=== PATIENT | female | born 1955 | race Caucasian/White ===

== ENCOUNTER → 2023-10-14 | Outpatient (CLI) | payer MEDICARE, OTHER ==
[2023-10-14 11:33] LABS: Partial Thromboplastin Time 23.8 sec (22.0-30.0)
[2023-10-14 15:54] LABS: HCT 40.7 % (37.2-46.3); HGB 13.2 g/dL (12.0-15.0); MCH 27.6 pg (27.0-32.0); MCHC 32.4 g/dL (32.0-37.0); Mean Platelet Volume 10.2 FL (9.5-12.2); NRBC Per 100 WBC 0 X 10*3/uL (0.00-0.01); Platelet Count 237 X 10*3/uL (140-440); RBC 4.79 X 10*6/uL (4.10-5.20); RDW 16.3 % (11.5-14.5); WBC 10.07 X 10*3/uL (4.50-10.00)
[2023-10-14 16:01] LABS: ALT 18 U/L (8-44); AST 12 U/L (13-35); Albumin 4.3 g/dL (3.8-4.9); Albumin/Globulin Ratio 1.72 Ratio (1.60-3.17); Alkaline Phosphatase 78 U/L (41-126); Blood Urea Nitrogen 33.1 mg/dL (9.0-27.0); Calcium 9.9 mg/dL (8.7-10.3); Carbon Dioxide 23.4 mmol/L (21.6-31.8); Chloride 102 mmol/L (96-109); Globulin 2.5 g/dL (1.6-3.3); Glucose 91 mg/dL (70-110); Potassium 4.6 mmol/L (3.5-5.5); Sodium 138 mmol/L (135-145); Total Bilirubin 0.3 mg/dL (0.3-1.2); Total Protein 6.8 g/dL (6.2-8.2)
[2023-10-14 23:24] LABS: INR 0.9 (<1.2); Prothrombin Time 10.1 sec (10.0-12.5)
== END | disposition home or self-care (01) ==
LOC: LABPAT 10:20
PROVIDERS: ATTEND Orthopaedic Surgery
DX: Z01.812 Encounter for preprocedural laboratory examination (principal); M17.12 Unilateral primary osteoarthritis, left knee; Z22.322 Carrier or suspected carrier of Methicillin resistant Staphylococcus aureus
CPT/HCPCS: 36415; 80053; 85027; 85610; 85730; 87070

== ENCOUNTER 2023-10-25 07:09 | Day surgery (SDC) | payer MEDICARE, OTHER ==
[2023-10-19 12:47] VITALS: BMI 43.5
[2023-10-25] MEDS: LACTATED RINGERS 1,000 ML IV SCH (07:27)
[2023-10-25 07:39] LABS: Glucose,Whole Blood 121 mg/dL (70-110)
[2023-10-25] MEDS: GABAPENTIN 300 MG CAP PO PRN (07:49)
[2023-10-25] MEDS: ONDANSETRON 4 MG/2 ML VIAL IVP ONE (07:49)
[2023-10-25] MEDS: ACETAMINOPHEN TAB 500 MG TAB PO PRN (07:49)
[2023-10-25] MEDS: MELOXICAM 7.5 MG TAB PO PRN (07:49)
[2023-10-25] MEDS: DEXAMETHASONE SOD PHOSPHATE 4 MG/ML 1 ML VIAL IV ONE (07:49)
[2023-10-25] MEDS: fentaNYL (PF) 50 MCG/ML 2 ML AMP IVP ONE ×2 (07:54→07:59)
[2023-10-25] MEDS: MIDAZOLAM 2 MG/2 ML VIAL IVP ONE ×2 (07:54→07:58)
[2023-10-25] MEDS ORDERED: bisacodyL 10 MG SUPP RECTAL PRN (08:04)
[2023-10-25] MEDS ORDERED: NALOXONE 0.4 MG/ML 1 ML VIAL IV PRN (08:04)
[2023-10-25] MEDS ORDERED: HYDROmorphone 0.5 MG/0.5 ML SYRINGE IVP PRN ×2 (08:04)
[2023-10-25] MEDS ORDERED: MAGNESIUM HYDROXIDE 2,400 MG/30 ML CUP PO PRN (08:04)
[2023-10-25] MEDS ORDERED: NA PHOS,M-B/NA PHOS,DI-BA 133 ML ENEMA RECTAL PRN (08:04)
[2023-10-25] MEDS ORDERED: fentaNYL (PF) 50 MCG/ML 2 ML AMP ONE (08:15)
[2023-10-25] MEDS ORDERED: PROPOFOL 10 MG/ML 20 ML VIAL IV ONE (08:15)
[2023-10-25] MEDS ORDERED: DEXAMETHASONE SOD PHOSPHATE 4 MG/ML 1 ML VIAL ONE (08:15)
[2023-10-25] MEDS ORDERED: SODIUM CHLORIDE 0.9% (PF) 10 ML VIAL ONE (08:15)
[2023-10-25] MEDS ORDERED: KETAMINE HCL IN 0.9 % NACL 50 MG/5 ML SYRINGE ONE (08:15)
[2023-10-25] MEDS ORDERED: MIDAZOLAM 2 MG/2 ML VIAL ONE (08:15)
[2023-10-25] MEDS ORDERED: ROPIVACAINE 5 MG/ML 30 ML VIAL ONE (08:15)
[2023-10-25] MEDS ORDERED: diphenhydrAMINE 50 MG/ML 1 ML VIAL ONE (08:15)
[2023-10-25] MEDS ORDERED: TRANEXAMIC 1,000 MG/100ML-NACL PREMIX BAG ONE (08:15)
--- NOTE | 2023-10-25 08:16 | P.ANPRN ---
Procedure Note - Anesthesia - Nerve Block Performed Left Adductor Canal Infusion Time Out Performed: Yes Date of Procedure: 10/25/23 Procedure Start Time: 07:54 Procedure Stop Time: 08:01 Location of Patient: PreOp Indication: Acute Post-Operative Pain, Requested by Surgeon Sedation Type: Sedate with meaningful contact maintained Preparation: Sterile Prep, Sterile Dressing Position: Supine Catheter: Indwelling Needle Types: Pajunk Needle Gauge: 18 Ultrasound used to visualize needle placement: Yes Ultrasound used to observe medication spread: Yes Injectate: 0.5% Ropivacaine (see comment for volume) (Ropivacaine 0.5% 15 ml + 15 ml NS) Blood Aspirated: No Pain Paresthesia on Injection Noted: No Resistance on Injection: Normal Image Stored and Saved: Yes Events: Uneventful and Well Tolerated
[2023-10-25] MEDS: ceFAZolin 1,000 MG in SODIUM CHLORIDE 0.9% 1,000 ML IRRIGATION ONE (08:17)
[2023-10-25] MEDS: TRANEXAMIC 1,000 MG/100ML-NACL 1,000 MG in SALINE 1 100ML.BAG IVPB PRN ×2 (08:17→09:15)
--- NOTE | 2023-10-25 08:17 | P.ANPRN ---
Procedure Note - Anesthesia - Nerve Block Performed Left iPack Single Time Out Performed: Yes Date of Procedure: 10/25/23 Procedure Start Time: :02 Procedure Stop Time: 08:06 Location of Patient: PreOp Indication: Acute Post-Operative Pain, Requested by Surgeon Sedation Type: Sedate with meaningful contact maintained Preparation: Sterile Prep Position: Right Lateral Needle Types: Pajunk Needle Gauge: 21 Ultrasound used to visualize needle placement: Yes Ultrasound used to observe medication spread: Yes Injectate: 0.5% Ropivacaine (see comment for volume) (Ropivacaine 0.5% 15 ml + 15 ml NS + 4 mg Dexamethasone) Blood Aspirated: No Pain Paresthesia on Injection Noted: No Resistance on Injection: Normal Image Stored and Saved: Yes Events: Uneventful and Well Tolerated
[2023-10-25] MEDS: LACTATED RINGERS 1,000 ML IV ONE (09:15)
--- NOTE | 2023-10-25 09:25 | P.OP ---
Date of Procedure: 10/25/23 Preoperative Diagnosis: Severe osteoarthritis left knee Postoperative Diagnosis: Severe osteoarthritis left knee Procedure(s) Performed: Left total knee arthroplasty Implants: [employer]hew Journey II CR Oxinium cruciate retaining femoral component size 5, left [employer] Journey nonporous tibial baseplate size 4, left [employer] Journey II, CR articular insert, size 9 mm, Size 3-4, left [employer] Journey Lucretia II resurfacing patellar component, oval, 32 mm All components were cemented using Palacos R bone cement The articulation is Oxinium on polyethylene Anesthesia: spinal Surgeon: Franki Hernandez Plate Filler #1: Harriet Ruiz Estimated Blood Loss (ml): 30 Pathology: none sent Condition: stable Disposition: PACU Indications for Procedure: The patient's knee is end-stage, and conservative management has failed. The operation of knee replacement has been discussed at length in the office, as well as potential risks and complications. These are inclusive of, but not limited to: Infection, bleeding, scarring, discomfort, stiffness, blood vessel and nerve damage, need for further surgery, failure to relieve symptoms, persistence, recurrence, or worsening of problems, loosening, dislocation, wear, blood clot, pulmonary embolism, , gait dysfunction, stiffness, and other risks as discussed in the office. Patient elects to proceed and the consent form has been signed. Operative Findings: The operative findings are consistent with severe osteoarthritis the left knee Description of Procedure: The patient was seen in the preoperative area, the consent was reviewed and the operative site was marked with a skin marker. The patient verified the procedure and the operative site. An adductor canal pain catheter and an iPACK block were placed by anesthesia in the preoperative area. The patient was then brought to the operating room and positioned on the operating room table in the supine position. Preoperative antibiotics and a gram of tranexamic acid were given intravenously. A spinal anesthetic was administered by the anesthesia department. Care was taken to make sure that all pressure points were adequatel y padded. A tourniquet was placed on the upper thigh and the lower extremity was prepped with ChloraPrep and draped in usual sterile fashion. A universal time-out was then performed which confirmed the patient's name, surgical site, ALLERGIES, and consent. The lower extremity was then exsanguinated and tourniquet was inflated to 250 mmHg. A standard anterior midline approach to the knee was performed. The skin and subcutaneous tissue were sharply dissected down to the patellar tendon. A medial parapatellar arthrotomy was then performed. The knee was then extended, the patellar was everted, and the knee was flexed. The infra-patellar fat pad was removed in order to enhance exposure. The anterior horns of both menisci were excised, and a release was performed to the posterior medial aspect of the knee. On gross visual inspection, there was complete loss of articular cartilage in the medial and patellofemoral joint spaces. There was also significant cartilage damage in the lateral compartment. There were multiple periarticular osteophytes globally about the knee which were then removed with a Ronguer. The femoral canal was then opened with the 9.5 mm intramedullary dril l. The 8 mm intramedullary soham was then inserted into the femoral canal with the distal femoral cutting guide set for 5 of valgus. The distal femoral cutting block was then pinned in place. The intramedullary soham was then removed, and the distal femur was then cut. The cutting block was then removed and the cut was checked for symmetry. The resected bone was then measured to confirm the appropriate distal femoral resection. Next, the sizing guide was then placed and set for 3 external rotation based off of the epicondylar axis and Oldwick's line. Pins were then placed and the drill holes, and the femur was sized with the sizing stylus. The pins were then removed, and the sizing guide was then removed. The spikes of the appropriate size femoral block was then placed into the predrilled holes, and malleted into place. Two 45 mm pins were then placed into the fixation holes on the cutting block. An ronald wing was then used to ensure there would be no notching with the anterior cut. The anterior condyles were cut without notching. The anterior chord cut was then performed, followed by the posterior cut, posterior chamfer cut, and the anterior chamfer cut. The collateral ligaments were protected during the entire process. The cutting block was then removed. Any remaining bone and osteophytes were removed from the femur with a Ronguer. Attention was then directed to the tibia. The remaining ACL was removed with a Ronguer, and the tibia was then gently subluxed forward with a large bent knee retractor. Any remaining menisci were excised. The posterior lateral corner was cauterized in order to coagulate the lateral geniculate artery. The extra medullary tibial cutting guide was then placed, set for the appropriate rotation, slope, and depth of resection. The proximal tibia cutting guide was then pinned in place. Proximal tibia was then cut and sized. A curved osteotome was then used to remove any posterior osteophytes from the distal femur. The femoral trial was placed. A narrow saw blade was then used to remove the anterior intracondylar femoral bone. The CR notch trial was then placed. The tibial trial was placed with the appropriate-sized insert. The knee was able to fully extend and flex to 130 and was stable throughout all range of motion. The knee was then extended and the patella was everted. Patella was then measured, and then using an osteotomy guide, the patella was cut at the appropriate level. The patellar component was sized. The patellar drill guide was placed and the patella was drilled. The patella trial was then placed. The knee was then taken through range of motion with the patella trial and the patella tracked normally using the no thumbs technique. The patella trial was then removed. The knee was then flexed and lug holes were drilled through the femoral trial and the femoral trial was then removed. The tibial was then re- exposed, and the tibial broach guide was then pinned in place after it was set for the appropriate rotation to allow for the most coverage without overhang. The tibia was then reamed and broached. The femoral canal was plugged with autologous bone. The cut surfaces of bone were then irrigated with pulsatile lavage. The knee was also irrigated with Irrisept solution. The components were then opened, the cement was mixed. Cement was placed on the backside of the femoral, tibial, and patellar components. Cement was then applied to the tibial surface and pressurized into the surface using finger pressurization technique. The tibial component was then applied and excess cement was removed after it was impacted securely noted to be flush with the cut surface. In similar fashion, the cement was applied to the cut femoral surface, pressurized and using finger pressurization the component was impacted in place. Excess cement was removed. The polyethylene spacer was then implanted and locked into position. Patellar component was then applied in a similar technique and the patellar clamp was used to hold patella in place while the cement hardened. The knee was held in full extension while the cement hardened. Once the cement had fully hardened, the knee was reinspected. Any other cement extrusion was removed the final range of motion testing showed range of motion from 0-130 with excellent stability, both medial and laterally and appropriate alignment of the leg. Patella tracked normally. After the cemented hardened, the tourniquet was released and hemostasis was obtained. A second gram of transexamic acid was given intravenously. The knee was again irrigated. The knee was again taken through range of motion and found to be stable throughout all range of motion of 0-130, and the patella tracked normally. The fascia was then closed with 0 Vicryl followed by #2 strata fix suture. The subcutaneous tissue was closed with 3-0 Vicryl and 3-0 strata fix. Exofin glue was used for the skin and placed with the knee in flexion. After the glue had dried, and Optafoam silver impregnated dressing was applied. A lightly compressive dressing was applied using web roll and Kam wrap. Patient was then transferred to the stretcher and taken to recovery room in stable condition. Sponge and needle counts were correct. The rehab assistant DAMIAN Singh was required due the complexity surgery and the need for a skilled surgical training specialist. She assisted in positioning, draping, retraction, and closure of the wound.
[2023-10-25] MEDS: HYDROmorphone 0.5 MG/0.5 ML SYRINGE IVP PRN ×2 (10:09→16:37)
[2023-10-25] MEDS: ROPIVACAINE 1,100 MG, SODIUM CHLORIDE 0.9% 500 ML 330 ML, EMPTY PAIN BALL 1 EACH MISCELLANE PRN (10:11)
[2023-10-25 11:14] LABS: Glucose,Whole Blood 181 mg/dL (70-110)
[2023-10-25] MEDS: HYDROcodone/APAP 7.5-325MG 1 EACH TAB PO PRN ×2 (11:41→20:21)
[2023-10-25] MEDS: SODIUM CHLORIDE 0.9% 1,000 ML IV SCH (12:53)
[2023-10-25] MEDS ORDERED: DEXTROSE 50% SYRINGE 50 ML IVP PRN ×2 (13:38)
[2023-10-25 13:50] LABS: Glucose,Whole Blood 226 mg/dL (70-110)
[2023-10-25] MEDS: INSULIN ASPART (NovoLOG) 100 UNIT/ML VIAL SQ SCH ×2 (13:57→17:23)
[2023-10-25] MEDS: INSULIN DETEMIR (LEVEMIR) 100 UNIT/ML SYR SQ SCH (14:01)
[2023-10-25] MEDS: ONDANSETRON 4 MG/2 ML VIAL IVP PRN (16:41)
--- NOTE | 2023-10-25 16:49 | P.CONS ---
History of Present Illness - Reason for Consult Consult date: 10/25/23 Medical management Requesting physician: Franki Hernandez - Chief Complaint Knee surgery - History of Present Illness This is a pleasant 68-year-old patient who follows with Dr. Krista Avilez. Chronic stable medical condition include coronary artery disease with stenting 2010, diabetes, GERD, hypertension, hyperlipidemia, fatty liver, obstructive sleep apnea uses CPAP,. Patient recently had a negative stress test. Patient is undergone left total knee arthroplasty. Pain is controlled. Has slight nausea. No chest pain or short of breath. Laying in bed. Comfortable. Review of systems: GEN.: Tired EYES: None HEENT: None NECK: None RESPIRATORY: None CARDIOVASCULAR: None GASTROINTESTINAL: None GENITOURINARY: None MUSCULOSKELETAL: Joint pains e LYMPHATICS: None HEMATOLOGICAL: None PSYCHIATRY: None NEUROLOGICAL: None Social history: . Started smoking age of 13 1/2 packs a day stopped in 2001. Does vaping rarely. Physical examination: VITAL SIGNS: Afebrile, 76, 16, 1 one 3 x 58, 94% on 2 L GENERAL: BMI 43.8, reclining bed awake comfortable. EYES: Pupils equal. Conjunctiva aniket l. HEENT: External appearance of nose and ears normal, oral cavity grossly normal. NECK: JVD not raised; masses not palpable. HEART: First and second heart sounds are normal; no edema. LUNGS: Respiratory rate normal; clear to auscultation. ABDOMEN: Soft, nontender, liver spleen not palpable, no masses palpable. PSYCH: Alert and oriented x3; mood and affect aniket l. MUSCULOSKELETAL:No Clubbing/cyanosis;muscles-grossly intact. OA. Dressing over the left knee. NEUROLOGICAL: Cranial nerves grossly intact; no facial asymmetry, power and sensation grossly intact. LYMPHATICS: No lymph nodes palpable in the axilla and neck INVESTIGATIONS, reviewed in the clinical context: October 14, 2023: White count 10 hemoglobin 13.2 platelets 237 potassium 4.6 BUN 33.1 creatinine 1 Assessment and plan: -Left total knee arthroplasty Aspirin for DVT prophylaxis. Pain controlled. -Chronic hyperuricemia Allopurinol 100 mg a day -CAD with a prior history of stent in 2010. Had a recent negative stress test. Continue aspirin. Lipitor. -Diabetes mellitus type 2 Glucotrol-hold. Resume metformin.. Follow Accu-Cheks with sliding scale insulin. Resume home dose of i Levemir and sliding scale insulin.. -Essential hypertension Currently blood pressure is relatively on the lower side. Resume Lopressor. Hold off amlodipine and Cozaar. For now. -Morbid obesity BMI 43.8 Weight loss measures Care was discussed with the patient. Questions answered. Thank Dr. Hernandez Past Medical History Past Medical History: Coronary Artery Disease (CAD), Diabetes Mellitus, GERD/Reflux, Hyperlipidemia, Hypertension, Liver Disease, Osteoarthritis (OA), Sleep Apnea/CPAP/BIPAP Additional Past Medical History / Comment(s): IDDM, "fatty liver",uses C-PAP. History of Any Multi-Drug Resistant Organisms: None Reported Past Surgical History: Heart Catheterization With Stent, Orthopedic Surgery Additional Past Surgical History / Comment(s): Bilat rotator cuff repair, repair torn bicep rt, 2 fingers rt hand trigger finger release, Rt wrist surgery with plate and screws, Parathyroidectomy. Past Anesthesia/Blood Transfusion Reactions: Previous Problems w/ Anesthesia Additional Past Anesthesia/Blood Transfusion Reaction / Comm: low oxygen level after surgery. Date of Last Stent Placement:: 10-20-2010 Past Psychological History: No Psychological Hx Reported Smoking Status: Former smoker, Vaper Past Alcohol Use History: Rare Additional Past Alcohol Use History / Comment(s): Sarted smoking age 13, 1.5ppd, quit 2001 Past Drug Use History: Marijuana Additional Drug Use History / Comment(s): Rarely vapes Marijuana "hits it 2-3 times" Edible gummies rarely use. Instructed no Marijuana use 24hors prior to procedure. - Past Family History Mother Family Medical History: Cancer Additional Family Medical History / Comment(s): skin cancer and on leg. Medications and Allergies Home Medications Medication Instructions Recorded Confirmed Type Aspirin 325 mg PO HS 10/19/23 10/25/23 History Calcium Vitamin D3 1 dose PO QAM 10/19/23 10/25/23 History Cetirizine HCl [Zyrtec] 10 mg PO DAILY 10/19/23 10/25/23 History Furosemide [Lasix] 20 mg PO QAM 10/19/23 10/25/23 History Insulin Aspart [NovoLOG] 4 - 5 units SQ AC-BRKFST 10/19/23 10/25/23 History Insulin Aspart [NovoLOG] 20 units SQ AC-SUPPER 10/19/23 10/25/23 History Insulin Glargine,Hum.rec.anlog 13 unit SQ QAM 10/19/23 10/25/23 History [Basaglar Kwikpen U-100] L.acidoph,Paracasei, B.lactis 1 each PO QAM 10/19/23 10/25/23 History [Probiotic] Losartan Potassium [Cozaar] 100 mg PO QAM 10/19/23 10/25/23 History Meloxicam [Mobic] 15 mg PO QAM PRN 10/19/23 10/25/23 History Metoprolol Tartrate [Lopressor] 50 mg PO BID 10/19/23 10/25/23 History Multivitamin [Multivitamins Adult 1 each PO DAILY 10/19/23 10/25/23 History Gummies] Pantoprazole [Protonix] 40 mg PO DAILY 10/19/23 10/25/23 History Rosuvastatin [Crestor] 10 mg PO HS 10/19/23 10/25/23 History allopurinoL [Zyloprim] 100 mg PO DAILY 10/19/23 10/25/23 History amLODIPine BESYLATE 5 mg PO QAM 10/19/23 10/25/23 History glipiZIDE [Glucotrol] 10 mg PO AC-BRKFST 10/19/23 10/25/23 History metFORMIN HCL [Glucophage] 1,000 mg PO AC-SUPPER 10/19/23 10/25/23 History traMADol HCL 50 mg PO BID PRN 10/19/23 10/25/23 History Aspirin 325 mg PO BID #60 tab 10/25/23 Rx HYDROcodone/APAP 7.5-325MG [[place] 1 - 2 tab PO Q6H PRN #32 tab 10/25/23 Rx 7.5-325] Sennosides [Senokot] 2 tab PO DAILY PRN #60 tablet 10/25/23 Rx Allergies Allergy/AdvReac Type Severity Reaction Status Date / Time hydromorphone [From Dilaudid] AdvReac Nausea & Verified 10/25/23 07:26 Vomiting nizatidine [From Axid] AdvReac Rash/Hives Verified 10/25/23 07:26 Statin AdvReac "Muscles Uncoded 10/25/23 07:26 hurt all over." Physical Exam Vitals: Vital Signs Temp Pulse Resp BP BP Pulse Ox 10/25/23 12:30 76 16 113/58 94 L 10/25/23 12:00 92 16 117/58 95 10/25/23 11:43 80 16 138/63 97 10/25/23 11:28 79 16 117/66 95 10/25/23 10:56 87 16 130/66 95 10/25/23 10:39 75 16 121/67 94 L 10/25/23 10:24 81 16 126/66 99 10/25/23 10:08 77 16 134/71 99 10/25/23 09:53 97.3 F L 80 16 143/69 99 10/25/23 08:14 86 16 141/65 98 10/25/23 08:05 89 17 160/74 97 10/25/23 07:23 96.9 F L 88 18 192/81 96 Intake and Output 10/25/23 10/25/23 10/25/23 06:59 14:59 22:59 Intake Total 1801 Output Total 280 Balance 1521 Intake: IV 1801 Output: Urine 250 Estimated Blood Loss 30 Other: Weight 108.5 kg Results Labs: Abnormal Lab Results - Last 24 Hours (Table) 10/25/23 10/25/23 10/25/23 Range/Units 07:34 11:10 13:48 POC Glucose (mg/dL) 121 H 181 H 226 H (70-110) mg/dL
[2023-10-25 17:00] LABS: Glucose,Whole Blood 286 mg/dL (70-110)
[2023-10-25] MEDS: metFORMIN 500 MG TAB PO SCH (17:22)
[2023-10-25 19:53] LABS: Glucose,Whole Blood 235 mg/dL (70-110)
[2023-10-25] MEDS: SENNOSIDES-DOCUSATE SODIUM 1 EACH TAB PO SCH (20:09)
[2023-10-25] MEDS: ASPIRIN 325 MG TAB PO SCH (20:09)
[2023-10-25] MEDS: ATORVASTATIN 20 MG TAB PO SCH (20:09)
[2023-10-26 06:01] LABS: Glucose,Whole Blood 149 mg/dL (70-110)
[2023-10-26] MEDS: PANTOPRAZOLE 40 MG TABLET PO SCH (06:19)
--- NOTE | 2023-10-26 07:00 | P.PN ---
Progress Note - Text Progress Note Date: 10/26/23 Postoperative day # 1 status post total knee arthroplasty, and adductor canal catheter placed for postoperative analgesia, currently at ropivacaine 0.2% 8 mL per hour and continuous infusion, visual analogue scale is 4/10, patient using oral pain medication for breakthrough pain. Assessment and plan= Acute postoperative pain, adductor canal catheter for pain control, pain is well controlled we'll continue the same management.
[2023-10-26] MEDS ORDERED: glipiZIDE 10 MG TAB PO SCH (07:30)
[2023-10-26] MEDS: allopurinoL 100 MG TAB PO SCH (07:50)
[2023-10-26] MEDS: MULTIVITAMINS, THERA 1 EACH TAB PO SCH (07:50)
[2023-10-26 08:11] LABS: Basophils % (A) 0 %; Eosinophils % (A) 0 %; HCT 34.4 % (34.0-46.0); HGB 11.7 gm/dL (11.4-16.0); Lymphocytes # (A) 2.4 k/uL (1.0-4.8); Lymphocytes % (A) 15 %; MCH 29.2 pg (25.0-35.0); MCHC 33.9 g/dL (31.0-37.0); MCV 86.2 fL (80.0-100.0); Mean Platelet Volume 8.1; Monocytes % (A) 6 %; Neutrophils # (A) 12.4 k/uL (1.3-7.7); Neutrophils % (A) 77 %; Platelet Count 218 k/uL (150-450); RBC 3.99 m/uL (3.80-5.40); RDW 15.8 % (11.5-15.5)
--- NOTE | 2023-10-26 09:18 | XR ---
EXAMINATION TYPE: XR knee limited LT DATE OF EXAM: 10/25/2023 10:36 AM CLINICAL INDICATION:Female, 68 years old with history of post op; [facility] COMPARISON: None. TECHNIQUE: XR knee limited LT; examined in Frontal, lateral and oblique projections. FINDINGS: Status post total knee arthroplasty changes with hardware in appropriate alignment and in tact. No evidence of fracture. IMPRESSION: Status post total knee arthroplasty changes with hardware intact and appropriate alignment. No fractu res identified.
--- NOTE | 2023-10-26 09:39 | P.DS ---
Providers Expected date of discharge: 10/26/23 Attending physician: Franki Hernandez Consults: 10/25/23 08:04 Consult Physician Routine Consulting Provider: Prakash Wong Consult Reason/Comments: medical management Do you want consulting provider notified?: Yes Primary care physician: Krista Avilez - Discharge Diagnosis(es) (1) Osteoarthritis of left knee Current Visit: Yes Status: Acute (2) Status post total left knee replacement Current Visit: Yes Status: Acute Hospital Course: This is a 68-year-old female with known history of degenerative arthritis of the left knee. The patient presented for evaluation as an outpatient. After discussion and consideration patient elects to proceed with total knee arthroplasty. The patient is seen preoperatively by Dr. Hernandez and medically cleared for surgery by their primary care physician. Patient is admitted to [facility] on 10/25/2023 for total knee arthroplasty. The procedure is performed without complication or sequelae. The patient is doing well postoperatively. Labs and vital signs are stable on day of discharge. On day of discharge patient's knee incision is healing well. There is minimal erythema. There is no drainage noted at this time. There is minimal soft tissue swelling to the knee. Patient has full foot and ankle motion without difficulty or pain. Calf is soft and nontender to palpation. Neurovascular status to the left lower extremity is intact. Patient is discharged home in good condition. Please see med rec for accurate list of home medications. Plan - Discharge Summary Discharge Rx Participant: No New Discharge Prescriptions: New Aspirin 325 mg PO BID #60 tab HYDROcodone/APAP 7.5-325MG [[place] 7.5-325] 1 - 2 tab PO Q6H PRN #32 tab PRN Reason: Pain Sennosides [Senokot] 2 tab PO DAILY PRN #60 tablet PRN Reason: Constipation Ketorolac [Toradol] 10 mg PO Q6HR #12 tab No Action traMADol HCL 50 mg PO BID PRN PRN Reason: Pain metFORMIN HCL [Glucophage] 1,000 mg PO AC-SUPPER Rosuvastatin [Crestor] 10 mg PO HS Multivitamin [Multivitamins Adult Gummies] 1 each PO DAILY L.acidoph,Paracasei, B.lactis [Probiotic] 1 each PO QAM Furosemide [Lasix] 20 mg PO QAM Calcium Vitamin D3 1 dose PO QAM glipiZIDE [Glucotrol] 10 mg PO AC-BRKFST Meloxicam [Mobic] 15 mg PO QAM PRN PRN Reason: Pain amLODIPine BESYLATE 5 mg PO QAM Pantoprazole [Protonix] 40 mg PO DAILY Metoprolol Tartrate [Lopressor] 50 mg PO BID Losartan Potassium [Cozaar] 100 mg PO QAM Insulin Aspart [NovoLOG] 20 units SQ AC-SUPPER Cetirizine HCl [Zyrtec] 10 mg PO DAILY Aspirin 325 mg PO HS allopurinoL [Zyloprim] 100 mg PO DAILY Insulin Aspart [NovoLOG] 4 - 5 units SQ AC-BRKFST Insulin Glargine,Hum.rec.anlog [Basaglar Kwikpen U-100] 13 unit SQ QAM Discharge Medication List Aspirin 325 mg PO HS 10/19/23 [History] Calcium Vitamin D3 1 dose PO QAM 10/19/23 [History] Cetirizine HCl [Zyrtec] 10 mg PO DAILY 10/19/23 [History] Furosemide [Lasix] 20 mg PO QAM 10/19/23 [History] Insulin Aspart [NovoLOG] 4 - 5 units SQ AC-BRKFST 10/19/23 [History] Insulin Aspart [NovoLOG] 20 units SQ AC-SUPPER 10/19/23 [History] Insulin Glargine,Hum.rec.anlog [Basaglar Kwikpen U-100] 13 unit SQ QAM 10/19/23 [History] L.acidoph,Paracasei, B.lactis [Probiotic] 1 each PO QAM 10/19/23 [History] Losartan Potassium [Cozaar] 100 mg PO QAM 10/19/23 [History] Meloxicam [Mobic] 15 mg PO QAM PRN 10/19/23 [History] Metoprolol Tartrate [Lopressor] 50 mg PO BID 10/19/23 [History] Multivitamin [Multivitamins Adult Gummies] 1 each PO DAILY 10/19/23 [History] Pantoprazole [Protonix] 40 mg PO DAILY 10/19/23 [History] Rosuvastatin [Crestor] 10 mg PO HS 10/19/23 [History] allopurinoL [Zyloprim] 100 mg PO DAILY 10/19/23 [History] amLODIPine BESYLATE 5 mg PO QAM 10/19/23 [History] glipiZIDE [Glucotrol] 10 mg PO AC-BRKFST 10/19/23 [History] metFORMIN HCL [Glucophage] 1,000 mg PO AC-SUPPER 10/19/23 [History] traMADol HCL 50 mg PO BID PRN 10/19/23 [History] Aspirin 325 mg PO BID #60 tab 10/25/23 [Rx] HYDROcodone/APAP 7.5-325MG [[place] 7.5-325] 1 - 2 tab PO Q6H PRN #32 tab 10/25/23 [Rx] Sennosides [Senokot] 2 tab PO DAILY PRN #60 tablet 10/25/23 [Rx] Ketorolac [Toradol] 10 mg PO Q6HR #12 tab 10/26/23 [Rx] Follow up Appointment(s)/Referral(s): Franki Hernandez DO [Doctor of Osteopathic Medicine] - 2 Weeks Activity/Diet/Wound Care/Special Instructions: Weightbearing as tolerated with a walker. CPM 5-6h daily as tolerated. Leave dressing intact. Dressing may be removed by home care nurse or by patient in 7 days. Then change dressing twice daily until follow up. May shower with initial dressing intact and after removal. If dressing become saturated, please remove. Recommend use of compression stockings daily until follow up to help prevent swelling and blood clots. May remove at night before sleeping. Please take aspirin 325mg twice daily for 30 days to prevent blood clots. Please follow up with [facility] and call with any questions or concerns, . Discharge Disposition: HOME WITH HOME HEALTH SERVICES
[2023-10-26] MEDS: KETOROLAC 15 MG/ML 1 ML VIAL IVP PRN (09:55)
[2023-10-26 10:35] VITALS: BP 178/75; PULSE 98; RESP 18; TEMP 97.4
[2023-10-26 11:45] LABS: Glucose,Whole Blood 127 mg/dL (70-110)
[2023-10-26] MEDS: LOSARTAN 50 MG TAB PO SCH (12:07)
[2023-10-26] MEDS: amLODIPine 5 MG TAB PO SCH (12:07)
--- NOTE | 2023-10-26 13:12 | P.PN ---
Subjective Progress Note Date: 10/26/23 This is a pleasant 68-year-old patient who follows with Dr. Krista Avilez. Chronic stable medical condition include coronary artery disease with stenting 2010, diabetes, GERD, hypertension, hyperlipidemia, fatty liver, obstructive sleep apnea uses CPAP,. Patient recently had a negative stress test. Patient is undergone left total knee arthroplasty. Pain is controlled. Has slight nausea. No chest pain or short of breath. Laying in bed. Comfortable. 10/25. Patient seen and examined. Patient blood pressure elevated, resume home meds. REVIEW OF SYSTEMS: CONSTITUTIONAL: No fever, no malaise,. CARDIOVASCULAR: No chest pain, no palpitations, no syncope. PULMONARY: No shortness of breath, no cough, GASTROINTESTINAL: No diarrhea, no nausea, no vomiting, no abdominal pain. NEUROLOGICAL: No headaches, no weakness, PHYSICAL EXAMINATION: GENERAL: The patient is alert and oriented x3, not in any acute distress. Well developed, well nourished. HEENT: Pupils are round and equally reacting to light. EOMI. No scleral icterus. No conjunctival pallor. Normocephalic, atraumatic. No pharyngeal erythema. No thyromegaly. CARDIOVASCULAR: S1 and S2 present. No murmurs, rubs, or gallops. PULMONARY: Chest is clear to auscultation, no wheezing or crackles. ABDOMEN: Soft, nontender, nondistended, normoactive bowel sounds. No palpable organomegaly. MUSCULOSKELETAL: Left knee surgical incision seen EXTREMITIES: No cyanosis, clubbing, or pedal edema. NEUROLOGICAL: Gross neurological examination did not reveal any focal deficits. SKIN: No rashes. Assessment and plan -Left total knee arthroplasty Continue pain management per orthopedics Continue DVT prophylaxis per orthopedics Resume home meds PT and OT consulted -Chronic hyperuricemia Allopurinol 100 mg a day -CAD with a prior history of stent in 2010. Had a recent negative stress test. Continue aspirin. Lipitor. -Diabetes mellitus type 2 Glucotrol-hold. Resume metformin.. Follow Accu-Cheks with sliding scale insulin. Resume home dose of i Levemir and sliding scale insulin.. -Essential hypertension Monitor vital signs resume Lopressor. Resume Norvasc and losartan. -Morbid obesity BMI 43.8 Weight loss measures Labs and medication were reviewed.. Continue same treatment. Continue with symptomatic treatment. Resume home medication. Monitor labs and vitals. DVT and GI prophylaxis. Further recommendations as per clinical course of the patient Dictation was produced using [employer] dictation software. please excuse any grammatical, word or spelling errors. Objective - Vital Signs Vital signs: Vital Signs Temp 97.4 F L 10/26/23 09:50 Pulse 98 10/26/23 09:50 Resp 18 10/26/23 09:50 BP 178/75 10/26/23 09:50 Pulse Ox 95 10/26/23 09:50 FiO2 Intake & Output 10/25/23 10/26/23 10/26/23 18:59 06:59 18:59 Intake Total 1801 Output Total 530 Balance 1271 Weight 108.5 kg Intake: IV 1801 Output: Urine 500 Estimated Blood Loss 30 Other: Voiding Method Toilet Toilet # Voids 3 - Labs CBC & Chem 7: 10/26/23 06:58 Labs: Abnormal Lab Results - Last 24 Hours (Table) 10/25/23 10/25/23 10/25/23 Range/Units 13:48 16:59 19:50 WBC (3.8-10.6) k/uL RDW (11.5-15.5) % Neutrophils # (1.3-7.7) k/uL POC Glucose (mg/dL) 226 H 286 H 235 H (70-110) mg/dL 10/26/23 10/26/23 Range/Units 05:59 06:58 WBC 16.0 H (3.8-10.6) k/uL RDW 15.8 H (11.5-15.5) % Neutrophils # 12.4 H (1.3-7.7) k/uL POC Glucose (mg/dL) 149 H (70-110) mg/dL
== END 2023-10-26 12:42 | disposition home health service (06) ==
LOC: OR 07:09 → 4SSUR 09:53 → OR 10-26 12:42
PROVIDERS: ATTEND Orthopaedic Surgery
DX: M17.12 Unilateral primary osteoarthritis, left knee (principal); E11.9 Type 2 diabetes mellitus without complications; E66.01 Morbid (severe) obesity due to excess calories; E78.5 Hyperlipidemia, unspecified; G47.33 Obstructive sleep apnea (adult) (pediatric); I10 Essential (primary) hypertension; I25.10 Atherosclerotic heart disease of native coronary artery without angina pectoris; K21.9 Gastro-esophageal reflux disease without esophagitis; K76.0 Fatty (change of) liver, not elsewhere classified; F12.90 Cannabis use, unspecified, uncomplicated; Z68.41 Body mass index [BMI] 40.0-44.9, adult; Z79.4 Long term (current) use of insulin; Z79.82 Long term (current) use of aspirin; Z87.891 Personal history of nicotine dependence; Z88.5 Allergy status to narcotic agent; Z88.8 Allergy status to other drugs, medicaments and biological substances; Z95.5 Presence of coronary angioplasty implant and graft; Z79.899 Other long term (current) drug therapy
CPT/HCPCS: 97161; 64999; 64448; 85025; 83036; 73560; 27447; C1713; C1776; C1751; J2250; J1100; J0690 ×2; J2405 ×2; J3010; J2795; J1885; J1170 ×2

== ENCOUNTER → 2024-01-26 | Outpatient (CLI) | payer MEDICARE, OTHER ==
[2024-01-26 14:33] LABS: INR 0.8 (<1.2); Partial Thromboplastin Time 22.1 sec (22.0-30.0); Prothrombin Time 9.6 sec (10.0-12.5)
[2024-01-26 18:15] LABS: HCT 41.1 % (37.2-46.3); HGB 12.4 g/dL (12.0-15.0); MCH 26.1 pg (27.0-32.0); MCHC 30.2 g/dL (32.0-37.0); MCV 86.3 FL (80.0-97.0); Mean Platelet Volume 10.5 FL (9.5-12.2); NRBC Per 100 WBC 0 X 10*3/uL (0.00-0.01); Platelet Count 286 X 10*3/uL (140-440); RBC 4.76 X 10*6/uL (4.10-5.20); RDW 15.9 % (11.5-14.5); WBC 9.09 X 10*3/uL (4.50-10.00)
[2024-01-26 18:27] LABS: ALT 15 U/L (8-44); AST 21 U/L (13-35); Albumin 4.3 g/dL (3.8-4.9); Albumin/Globulin Ratio 1.65 Ratio (1.60-3.17); Alkaline Phosphatase 104 U/L (41-126); Blood Urea Nitrogen 28.1 mg/dL (9.0-27.0); Calcium 10.2 mg/dL (8.7-10.3); Carbon Dioxide 23.1 mmol/L (21.6-31.8); Chloride 103 mmol/L (96-109); Globulin 2.6 g/dL (1.6-3.3); Glucose 153 mg/dL (70-110); Potassium 4.7 mmol/L (3.5-5.5); Sodium 139 mmol/L (135-145); Total Bilirubin 0.2 mg/dL (0.3-1.2); Total Protein 6.9 g/dL (6.2-8.2)
== END | disposition home or self-care (01) ==
LOC: LABPAT 13:55
PROVIDERS: ATTEND Orthopaedic Surgery
DX: Z01.812 Encounter for preprocedural laboratory examination (principal); Z22.322 Carrier or suspected carrier of Methicillin resistant Staphylococcus aureus
CPT/HCPCS: 36415; 80053; 85027; 85610; 85730; 87070

== ENCOUNTER 2024-02-07 05:35 | Day surgery (SDC) | payer MEDICARE, OTHER ==
[~2024-02-07 05:35] MED LIST: TRANEXAMIC 1,000 MG/100ML-NACL 1,000 MG in SALINE 1 100ML.BAG IVPB PRN
[2024-02-07] MEDS ORDERED: LIDOCAINE 1% (10MG/ML) FOR IV START INTRADERMA PRN (05:46)
[2024-02-07] MEDS: GABAPENTIN 300 MG CAP PO PRN (06:08)
[2024-02-07] MEDS: MELOXICAM 7.5 MG TAB PO PRN (06:08)
[2024-02-07] MEDS: ACETAMINOPHEN TAB 500 MG TAB PO PRN (06:08)
[2024-02-07] MEDS: DEXAMETHASONE SOD PHOSPHATE 4 MG/ML 1 ML VIAL IV ONE (06:26)
[2024-02-07] MEDS: ONDANSETRON 4 MG/2 ML VIAL IVP ONE (06:26)
[2024-02-07 06:27] LABS: Glucose,Whole Blood 133 mg/dL (70-110)
[2024-02-07] MEDS: IV FLUID CONTINUATION 1,000 ML IV ONE ×2 (06:33→11:54)
[2024-02-07] MEDS: LACTATED RINGERS 1,000 ML IV SCH (06:33)
[2024-02-07] MEDS: MIDAZOLAM 2 MG/2 ML VIAL IVP ONE (06:41)
[2024-02-07] MEDS: fentaNYL (PF) 50 MCG/ML 2 ML AMP IVP ONE ×2 (06:42→06:50)
[2024-02-07] MEDS ORDERED: MIDAZOLAM 2 MG/2 ML VIAL IV PRN (07:00)
[2024-02-07] MEDS ORDERED: SODIUM CHLORIDE 0.9% (PF) 10 ML VIAL ONE (07:05)
[2024-02-07] MEDS ORDERED: PROPOFOL 10 MG/ML 20 ML VIAL IV ONE (07:05)
[2024-02-07] MEDS ORDERED: PHENYLEPHRINE-0.9% NACL SYG 1,000 MCG/10 ML SYRINGE ONE (07:05)
[2024-02-07] MEDS ORDERED: KETAMINE HCL IN 0.9 % NACL 50 MG/5 ML SYRINGE ONE (07:05)
[2024-02-07] MEDS ORDERED: ROPIVACAINE 5 MG/ML 30 ML VIAL ONE (07:05)
[2024-02-07] MEDS ORDERED: DEXAMETHASONE SOD PHOSPHATE 4 MG/ML 1 ML VIAL ONE (07:05)
[2024-02-07] MEDS ORDERED: MIDAZOLAM 2 MG/2 ML VIAL ONE (07:05)
[2024-02-07] MEDS ORDERED: TRANEXAMIC 1,000 MG/100ML-NACL PREMIX BAG ONE (07:05)
[2024-02-07] MEDS ORDERED: fentaNYL (PF) 50 MCG/ML 2 ML AMP ONE (07:05)
[2024-02-07] MEDS: ceFAZolin 1,000 MG in SODIUM CHLORIDE 0.9% 1,000 ML IRRIGATION ONE (07:10)
--- NOTE | 2024-02-07 07:50 | P.ANPRN ---
Procedure Note - Anesthesia - Nerve Block Performed Right Adductor Canal Infusion Time Out Performed: Yes Date of Procedure: 02/07/24 Procedure Start Time: 06:41 Procedure Stop Time: 06:50 Location of Patient: PreOp Indication: Acute Post-Operative Pain, Requested by Surgeon Sedation Type: Sedate with meaningful contact maintained Preparation: Sterile Prep, Sterile Dressing Position: Supine Catheter: Indwelling Needle Types: Pajunk Needle Gauge: 18 Ultrasound used to visualize needle placement: Yes Ultrasound used to observe medication spread: Yes Injectate: 0.5% Ropivacaine (see comment for volume) (20 ml + 10 ml NS) Blood Aspirated: No Pain Paresthesia on Injection Noted: No Resistance on Injection: Normal Image Stored and Saved: Yes Events: Uneventful and Well Tolerated
--- NOTE | 2024-02-07 07:52 | P.ANPRN ---
Procedure Note - Anesthesia - Nerve Block Performed Right iPack Single Time Out Performed: Yes Date of Procedure: 02/07/24 Procedure Start Time: 06:51 Procedure Stop Time: 06:57 Location of Patient: PreOp Indication: Acute Post-Operative Pain, Requested by Surgeon Sedation Type: Sedate with meaningful contact maintained Preparation: Sterile Prep Position: Left Lateral Needle Types: Pajunk Needle Gauge: 21 Ultrasound used to visualize needle placement: Yes Ultrasound used to observe medication spread: Yes Injectate: 0.5% Ropivacaine (see comment for volume) (20 ml + 10 ml NS + 4 mg Dexamethasone) Blood Aspirated: No Pain Paresthesia on Injection Noted: No Resistance on Injection: Normal Image Stored and Saved: Yes Events: Uneventful and Well Tolerated
--- NOTE | 2024-02-07 08:19 | P.OP ---
Date of Procedure: 02/07/24 Preoperative Diagnosis: Severe osteoarthritis right knee Postoperative Diagnosis: Severe osteoarthritis right knee Procedure(s) Performed: Right total knee arthroplasty Implants: [employer] Nephew Journey II CR Oxinium cruciate retaining femoral component size 5, right [employer] Journey nonporous tibial baseplate size 4, right [employer] Journey II, XLPE Deep Dished articular insert, size 12 mm, Size 3-4, right [employer] Journey Lucretia II resurfacing patellar component, oval, 32 mm All components were cemented using Palacos R bone cement The articulation is Oxinium on polyethylene Anesthesia: spinal Surgeon: Franki Hernandez [employer] Manager #1: Harriet Ruiz Estimated Blood Loss (ml): 50 Pathology: none sent Condition: stable Disposition: PACU Indications for Procedure: The patient's knee is end-stage, and conservative management has failed. The operation of knee replacement has been discussed at length in the office, as well as potential risks and complications. These are inclusive of, but not limited to: Infection, bleeding, scarring, discomfort, stiffness, blood vessel and nerve damage, need for further surgery, failure to relieve symptoms, persistence, recurrence, or worsening of problems, loosening, dislocation, wear, blood clot, pulmonary embolism, , gait dysfunction, stiffness, and other risks as discussed in the office. Patient elects to proceed and the consent form has been signed. Operative Findings: The operative findings are consistent with severe osteoarthritis of the right knee Description of Procedure: The patient was seen in the preoperative area, the consent was reviewed and the operative site was marked with a skin marker. The patient verified the procedure and the operative site. An adductor canal pain catheter and an iPACK block were placed by anesthesia in the preoperative area. The patient was then brought to the operating room and positioned on the operating room table in the supine position. Preoperative antibiotics and a gram of tranexamic acid were given intravenously. A spinal anesthetic was administered by the anesthesia department. Care was taken to make sure that all pressure points were adequately padded. A tourniquet was placed on the upper thigh and the lower extremity was prepped with ChloraPrep and draped in usual sterile fashion. A universal time-out was then performed which confirmed the patient's name, surgical site, ALLERGIES, and consent. The lower extremity was then exsanguinated and tourniquet was inflated to 250 mmHg. A standard anterior midline approach to the knee was performed. The skin and subcutaneous tissue were sharply dissected down to the patellar tendon. A medial parapatellar arthrotomy was then performed. The knee was then extended, the patellar was everted, and the knee was flexed. The infra-patellar fat pad was removed in order to enhance exposure. The anterior horns of both menisci were excised, and a release was performed to the posterior medial aspect of the knee. On gross visual inspection, there was complete loss of articular cartilage in the medial and patellofemoral joint spaces. There was also significant cartilage damage in the lateral compartment. There were multiple periarticular osteophytes globally about the knee which were then removed with a Ronguer. The femoral canal was then opened with the 9.5 mm intramedullary drill. The 8 mm intramedullary soham was then inserted into the femoral canal with the distal femoral cutting guide set for 5 of valgus. The distal femoral cutting block was then pinned in place. The intramedullary soham was then removed, and the distal femur was then cut. The cutting block was then removed and the cut was checked for symmetry. The resected bone was then measured to confirm the appropriate distal femoral resection. Next, the sizing guide was then placed and set for 3 external rotation based off of the epicondylar axis and Bosque's line. Pins were then placed and the drill holes, and the femur was sized with the sizing stylus. The pins were then removed, and the sizing guide was then removed. The spikes of the appropriate size femoral block was then placed into the predrilled holes, and malleted into place. Two 45 mm pins were then placed into the fixation holes on the cutting block. An ronald wing was then used to ensure there would be no notching with the anterior cut. The anterior condyles were cut without notching. The anterior chord cut was then performed, followed by the posterior cut, posterior chamfer cut, and the anterior chamfer cut. The collateral ligaments were protected during the entire process. The cutting block was then removed. Any remaining bone and osteophytes were removed from the femur with a Ronguer. Attention was then directed to the tibia. The remaining ACL was removed with a Ronguer, and the tibia was then gently subluxed forward with a large bent knee retractor. Any remaining menisci were excised. The posterior lateral corner was cauterized in order to coagulate the lateral geniculate artery. The extra medullary tibial cutting guide was then placed, set for the appropriate rotation, slope, and depth of resection. The proximal tibia cutting guide was then pinned in place. Proximal tibia was then cut and sized. A curved osteotome was then used to remove any posterior osteophytes from the distal femur. The femoral trial was placed. A narrow saw blade was then used to remove the anterior intracondylar femoral bone. The CR notch trial was then placed. The tibial trial was placed with the appropriate-sized insert. The knee was able to fully extend and flex to 130 and was stable throughout all range of motion. The knee was then extended and the patella was everted. Patella was then measured, and then using an osteotomy guide, the patella was cut at the appropriate level. The patellar component was sized. The patellar drill guide was placed and the patella was drilled. The patella trial was then placed. The knee was then taken through range of motion with the patella trial and the patella tracked normally using the no thumbs technique. The patella trial was then removed. The knee was then flexed and lug holes were drilled through the femoral trial and the femoral trial was then removed. The tibial was then re- exposed, and the tibial broach guide was then pinned in place after it was set for the appropriate rotation to allow for the most coverage without overhang. The tibia was then reamed and broached. The femoral canal was plugged with autologous bone. The cut surfaces of bone were then irrigated with pulsatile lavage. The knee was also irrigated with Irrisept solution. The components were then opened, the cement was mixed. Cement was placed on the backside of the femoral, tibial, and patellar components. Cement was then applied to the tibial surface and pressurized into the surface using finger pressurization technique. The tibial component was then applied and excess cement was removed after it was impacted securely noted to be flush with the cut surface. In similar fashion, the cement was applied to the cut femoral surface, pressurized and using finger pressurization the component was impacted in place. Excess cement was removed. The polyethylene spacer was then implanted and locked into position. Patellar component was then applied in a similar technique and the patellar clamp was used to hold patella in place while the cement hardened. The knee was held in full extension while the cement hardened. Once the cement had fully hardened, the knee was reinspected. Any other cement extrusion was removed the final range of motion testing showed range of motion from 0-130 with excellent stability, both medial and laterally and appropriate alignment of the leg. Patella tracked normally. After the cemented hardened, the tourniquet was released and hemostasis was obtained. A second gram of transexamic acid was given intravenously. The knee was again irrigated. The knee was again taken through range of motion and found to be stable throughout all range of motion of 0-130, and the patella tracked normally. The fascia was then closed with 0 Vicryl followed by #2 strata fix suture. The subcutaneous tissue was closed with 3-0 Vicryl and 3-0 strata fix. Exofin glue was used for the skin and placed with the knee in flexion. After the glue had dried, and Optafoam silver impregnated dressing was applied. A lightly compressive dressing was applied using web roll and Kam wrap. Patient was then transferred to the stretcher and taken to recovery room in stable condition. Sponge and needle counts were correct. The minister assistant DAMIAN Singh was required due the complexity surgery and the need for a skilled executive sales assistant. She assisted in positioning, draping, retraction, and closure of the wound.
[2024-02-07] MEDS ORDERED: MAGNESIUM HYDROXIDE 2,400 MG/30 ML CUP PO PRN (08:50)
[2024-02-07] MEDS ORDERED: ONDANSETRON 4 MG/2 ML VIAL IVP PRN (08:50)
[2024-02-07] MEDS ORDERED: NA PHOS,M-B/NA PHOS,DI-BA 133 ML ENEMA RECTAL PRN (08:50)
[2024-02-07] MEDS ORDERED: NALOXONE 0.4 MG/ML 1 ML VIAL IV PRN (08:50)
[2024-02-07] MEDS ORDERED: bisacodyL 10 MG SUPP RECTAL PRN (08:50)
[2024-02-07] MEDS ORDERED: HYDROmorphone 0.5 MG/0.5 ML SYRINGE IVP PRN ×3 (08:50)
[2024-02-07] MEDS: ROPIVACAINE 1,100 MG, SODIUM CHLORIDE 0.9% 500 ML 330 ML, EMPTY PAIN BALL 1 EACH MISCELLANE PRN (09:10)
--- NOTE | 2024-02-07 09:52 | XR ---
EXAMINATION TYPE: XR knee limited RT DATE OF EXAM: 02/07/2024 9:30 AM CLINICAL INDICATION:Female, 68 years old with history of Evaluation for Postop abnormality and alignm ent; [facility] COMPARISON: None. TECHNIQUE: XR knee limited RT; examined in Frontal, lateral and oblique projections. FINDINGS: Status post total knee arthroplasty changes with hardware in appropriate alignment and in tact. No evidence of fracture. Subcutaneous lucencies and lucencies within the joint consistent with surgical changes. IMPRESSION: Status post total knee arthroplasty changes with hardware intact and appropriate alignment. No fractu res identified. Atherosclerosis of the arterial vasculature.
[2024-02-07] MEDS: fentaNYL (PF) 50 MCG/ML 2 ML AMP IVP PRN (11:03)
[2024-02-07 11:29] LABS: Glucose,Whole Blood 225 mg/dL (70-110)
[2024-02-07] MEDS: SODIUM CHLORIDE 0.9% 1,000 ML IV SCH (11:53)
[2024-02-07] MEDS: HYDROcodone/APAP 7.5-325MG 1 EACH TAB PO PRN ×2 (12:02→18:16)
[2024-02-07 12:16] LABS: Glucose,Whole Blood 247 mg/dL (70-110)
[2024-02-07] MEDS: INSULIN ASPART (NovoLOG) 100 UNIT/ML VIAL SQ ONE (12:22)
[2024-02-07] MEDS ORDERED: DEXTROSE 50% SYRINGE 50 ML IVP PRN ×2 (16:45)
[2024-02-07 16:56] LABS: Glucose,Whole Blood 245 mg/dL (70-110)
[2024-02-07] MEDS: metFORMIN 500 MG TAB PO SCH (17:19)
[2024-02-07] MEDS: INSULIN ASPART (NovoLOG) 100 UNIT/ML VIAL SQ SCH (17:19)
--- NOTE | 2024-02-07 17:34 | P.CONS ---
History of Present Illness - Reason for Consult Consult date: 02/07/24 Medical management Requesting physician: Franki Hernandez - Chief Complaint Right knee surgery - History of Present Illness Very pleasant 68-year-old patient who follows with Dr. Krista Avilez. Chronic stable medical condition include coronary artery disease with stenting 2010, diabetes, GERD, hypertension, hyperlipidemia, fatty liver, obstructive sleep apnea uses CPAP,. Agree stress test earlier this year in October Patient is undergone right total knee arthroplasty. Postoperatively some plane was present in the recovery room. Now better. No nausea vomiting. Eating her supper. No cardiac symptoms. Review of systems: GEN.: Tired EYES: None HEENT: None NECK: None RESPIRATORY: None CARDIOVASCULAR: None GASTROINTESTINAL: None GENITOURINARY: None MUSCULOSKELETAL: Joint pains LYMPHATICS: None HEMATOLOGICAL: None PSYCHIATRY: None NEUROLOGICAL: None Social history: . Started smoking age of 13 1/2 packs a day stopped in 2001. Does vaping rarely. Physical examination: VITAL SIGNS: 97.8, 92, 17, 140/79, 91% room air GENERAL: BMI 4.6, reclining comfortable EYES: Pupils equal. Conjunctiva aniket l. HEENT: External appearance of nose and ears normal, oral cavity grossly normal. NECK: JVD not raised; masses not palpable. HEART: First and second heart sounds are normal; no edema. LUNGS: Respiratory rate normal; clear to auscultation. ABDOMEN: Soft, nontender, liver spleen not palpable, no masses palpable. PSYCH: Alert and oriented x3; mood and affect aniket l. MUSCULOSKELETAL:No Clubbing/cyanosis;muscles-grossly intact. OA. Dressing over the right knee NEUROLOGICAL: Cranial nerves grossly intact; no facial asymmetry, power and sensation grossly intact. LYMPHATICS: No lymph nodes palpable in the axilla and neck INVESTIGATIONS, reviewed in the clinical context: January 26, 2024: White count 9 hemoglobin 12.4 platelets 26 potassium 4.7 BUN 28.1 creatinine 1 Assessment and plan: -Right total knee arthroplasty Aspirin for DVT prophylaxis. Cefazolin for infection prophylaxis -Chronic hyperuricemia Allopurinol 100 mg a day -CAD with a prior history of stent in 2010. Earlier this year t negative stress test. Continue aspirin. Lipitor. -Diabetes mellitus type 2 Glucotrol-hold. Resume metformin.. Follow Accu-Cheks with sliding scale insulin. Humalog 4 units with each meal. Resume Lantus -Essential hypertension Resume Cozaar and Lopressor. Hold off amlodipine -Morbid obesity BMI 44.6 Weight loss measures -GERD Protonix -Hyperlipidemia Crestor 10 mg -Full code Care was discussed with the patient. Questions answered. Thank Dr. Hernandez Past Medical History Past Medical History: Coronary Artery Disease (CAD), Diabetes Mellitus, GERD/Reflux, Hyperlipidemia, Hypertension, Osteoarthritis (OA), Sleep Apnea/CPAP/BIPAP Additional Past Medical History / Comment(s): IDDM type II, KALIE with cpap, osteopenia, gout History of Any Multi-Drug Resistant Organisms: None Reported Past Surgical History: Heart Catheterization With Stent, Joint Replacement, Orthopedic Surgery Additional Past Surgical History / Comment(s): Parathyroidectomy, total L knee, R wrist surgery with hardware, R shoulder rotator cuff repair/torn bicep repair, 2 ringers R hand trigger finger repaired. TRK 02/07/24 Past Anesthesia/Blood Transfusion Reactions: Postoperative Nausea & Vomiting (PONV) Additional Past Anesthesia/Blood Transfusion Reaction / Comm: With parathyroid surgery/oxygen level was low. Date of Last Stent Placement:: 10/20/10 Additional Psychological History / Comment(s): Resides with spouse. Smoking Status: Former smoker Past Alcohol Use History: Occasional Past Drug Use History: None Reported - Past Family History Father Family Medical History: Diabetes Mellitus Mother Family Medical History: Coronary Artery Disease (CAD) Medications and Allergies Home Medications Medication Instructions Recorded Confirmed Type Cetirizine HCl [Zyrtec] 10 mg PO HS 10/19/23 02/07/24 History Furosemide [Lasix] 20 mg PO QAM 10/19/23 02/07/24 History Insulin Glargine,Hum.rec.anlog 13 unit SQ QAM 10/19/23 02/07/24 History [Basaglar Kwikpen U-100] L.acidoph,Paracasei, B.lactis 1 each PO QAM 10/19/23 02/07/24 History [Probiotic] Losartan Potassium [Cozaar] 100 mg PO QAM 10/19/23 02/07/24 History Metoprolol Tartrate [Lopressor] 50 mg PO BID 10/19/23 02/07/24 History Multivitamin [Multivitamins Adult 1 each PO QAM 10/19/23 02/07/24 History Gummies] Pantoprazole [Protonix] 40 mg PO QAM 10/19/23 02/07/24 History Rosuvastatin [Crestor] 10 mg PO HS 10/19/23 02/07/24 History allopurinoL [Zyloprim] 100 mg PO QAM 10/19/23 02/07/24 History amLODIPine BESYLATE 5 mg PO QAM 10/19/23 02/07/24 History glipiZIDE [Glucotrol] 10 mg PO AC-BID 10/19/23 02/07/24 History metFORMIN HCL [Glucophage] 1,000 mg PO AC-SUPPER 10/19/23 02/07/24 History traMADol HCL 50 mg PO BID PRN 10/19/23 02/07/24 History Aspirin 325 mg PO HS 02/02/24 02/07/24 History Calcium Carbonate/Vitamin D3 1 tab PO QAM 02/02/24 02/07/24 History [Calcium 600 mg-Vit D3 5 mcg (200 unit)] Insulin Aspart (Niacinamide) 4 - 5 units SQ AC-LUNCH 02/02/24 02/07/24 History [Fiasp 100 Unit/ml Flextouch Pen] Insulin Aspart (Niacinamide) 4 units SQ AC-BRKFST 02/02/24 02/07/24 History [Fiasp 100 Unit/ml Flextouch Pen] Insulin Aspart (Niacinamide) 20 units SQ AC-SUPPER 02/02/24 02/07/24 History [Fiasp 100 Unit/ml Flextouch Pen] Aspirin 325 mg PO BID #60 tab 02/07/24 Rx HYDROcodone/APAP 7.5-325MG [[place] 1 - 2 tab PO Q6H PRN #32 tab 02/07/24 Rx 7.5-325] Sennosides [Senokot] 2 tab PO DAILY PRN #60 tablet 02/07/24 Rx Allergies Allergy/AdvReac Type Severity Reaction Status Date / Time nizatidine [From Axid] Allergy Rash/Hives Verified 02/07/24 05:50 hydromorphone [From Dilaudid] AdvReac Nausea & Verified 02/07/24 05:50 Vomiting Statin AdvReac "Muscles Uncoded 02/07/24 05:50 hurt all over." Physical Exam Vitals: Vital Signs Temp Pulse Pulse Pulse Resp BP Pulse Ox 02/07/24 14:00 97.8 F 92 17 140/79 91 L 02/07/24 13:30 84 18 139/67 98 02/07/24 13:00 81 16 139/67 97 02/07/24 12:47 94 L 02/07/24 12:46 90 L 02/07/24 12:37 80 16 126/63 94 L 02/07/24 12:00 81 16 129/58 95 02/07/24 11:30 79 17 125/57 97 02/07/24 11:15 74 18 127/64 96 02/07/24 11:00 81 16 136/65 96 02/07/24 10:45 71 16 115/59 96 02/07/24 10:30 71 16 109/55 96 02/07/24 10:15 71 16 107/59 96 02/07/24 10:00 76 16 99/55 96 02/07/24 09:45 71 16 105/59 96 02/07/24 09:30 81 16 100/52 96 02/07/24 09:15 67 16 109/51 96 02/07/24 09:00 73 16 118/55 96 02/07/24 08:45 97 F L 76 16 131/61 96 02/07/24 07:06 86 18 98 02/07/24 06:36 144/82 02/07/24 06:14 97.9 F 101 H 18 206/91 98 Intake and Output 02/07/24 02/07/24 02/07/24 06:59 14:59 22:59 Intake Total 100 1001 Output Total 500 Balance 100 501 Intake: IV 100 1001 Output: Urine 450 Estimated Blood Loss 50 Other: Voiding Method Toilet Weight 110.5 kg 110.5 kg Results Labs: Abnormal Lab Results - Last 24 Hours (Table) 02/07/24 02/07/24 02/07/24 Range/Units 06:23 11:16 12:15 POC Glucose (mg/dL) 133 H 225 H 247 H (70-110) mg/dL 02/07/24 Range/Units 16:55 POC Glucose (mg/dL) 245 H (70-110) mg/dL
[2024-02-07] MEDS: ASPIRIN 325 MG TAB PO SCH (20:07)
[2024-02-07] MEDS: LORATADINE 10 MG TAB PO SCH (20:08)
[2024-02-07] MEDS: METOPROLOL TARTRATE 50 MG TAB PO SCH (20:08)
[2024-02-07] MEDS: SENNOSIDES-DOCUSATE SODIUM 1 EACH TAB PO SCH (20:08)
[2024-02-07] MEDS: ATORVASTATIN 20 MG TAB PO SCH (20:08)
[2024-02-07 20:37] LABS: Glucose,Whole Blood 270 mg/dL (70-110)
[2024-02-07 22:31] VITALS: RESP 18
[2024-02-08 05:45] LABS: Glucose,Whole Blood 190 mg/dL (70-110)
--- NOTE | 2024-02-08 07:00 | P.PN ---
Progress Note - Text Progress Note Date: 02/08/24 Postoperative day # 1 status post total knee arthroplasty, and adductor canal catheter placed for postoperative analgesia, currently at ropivacaine 0.2% 8 mL per hour and continuous infusion, visual analogue scale is 3/10, patient using oral pain medication for breakthrough pain. Assessment and plan= Acute postoperative pain, adductor canal catheter for pain control, pain is well controlled we'll continue the same management.
[2024-02-08 07:54] VITALS: BP 113/72; PULSE 80; TEMP 98.8
[2024-02-08] MEDS: LACTOBACILLUS ACIDOPHILUS/PECT 1 EACH CAPSULE PO SCH (08:02)
[2024-02-08] MEDS: LOSARTAN 50 MG TAB PO SCH (08:02)
[2024-02-08] MEDS: MULTIVITAMINS, THERA 1 EACH TAB PO SCH (08:02)
[2024-02-08] MEDS: INSULIN DETEMIR (LEVEMIR) 100 UNIT/ML SYR SQ SCH (08:02)
[2024-02-08] MEDS: allopurinoL 100 MG TAB PO SCH (08:02)
[2024-02-08] MEDS: PANTOPRAZOLE 40 MG TABLET PO SCH (08:03)
[2024-02-08 08:43] LABS: Basophils # (A) 0.02 X 10*3/uL (0.00-0.10); Basophils % (A) 0.1 %; Eosinophils # (A) 0.01 X 10*3/uL (0.04-0.35); Eosinophils % (A) 0.1 %; HCT 30.8 % (37.2-46.3); HGB 9.9 g/dL (12.0-15.0); Lymphocytes # (A) 1.86 X 10*3/uL (0.90-5.00); Lymphocytes % (A) 12.3 %; MCH 26.8 pg (27.0-32.0); MCHC 32.1 g/dL (32.0-37.0); MCV 83.5 FL (80.0-97.0); Mean Platelet Volume 10.4 FL (9.5-12.2); Monocytes % (A) 9.3 %; NRBC Per 100 WBC 0 X 10*3/uL (0.00-0.01); Neutrophils # (A) 11.74 X 10*3/uL (1.80-7.70); Neutrophils % (A) 77.7 %; Platelet Count 237 X 10*3/uL (140-440); RBC 3.69 X 10*6/uL (4.10-5.20); RDW 16.3 % (11.5-14.5)
--- NOTE | 2024-02-08 10:38 | P.DS ---
Providers Expected date of discharge: 02/08/24 Attending physician: Franki Hernandez Consults: 02/07/24 08:50 Consult Physician Routine Consulting Provider: Prakash Wong Consult Reason/Comments: medical management Do you want consulting provider notified?: Yes Primary care physician: Krista Avilez - Discharge Diagnosis(es) (1) Osteoarthritis of right knee Current Visit: Yes Status: Acute (2) S/P total knee arthroplasty Current Visit: Yes Status: Acute Hospital Course: This is a 68-year-old female with known history of degenerative arthritis of the right knee. The patient presented for evaluation as an outpatient. After discussion and consideration patient elects to proceed with total knee arthroplasty. The patient is seen preoperatively by Dr. Hernandez and medically cleared for surgery by their primary care physician. Patient is admitted to [facility] on 02/07/2024 for total knee arthroplasty. The procedure is performed without complication or sequelae. The patient is doing well postoperatively. Labs and vital signs are stable on day of discharge. On day of discharge patient's knee incision is healing well. There is minimal erythema. There is no drainage noted at this time. There is minimal soft tissue swelling to the knee. Patient has full foot and ankle motion without difficulty or pain. Calf is soft and nontender to palpation. Neurovascular status to the right lower extremity is intact. Patient is discharged home in good condition. Please see med rec for accurate list of home medications. Plan - Discharge Summary Discharge Rx Participant: No New Discharge Prescriptions: New Aspirin 325 mg PO BID #60 tab HYDROcodone/APAP 7.5-325MG [[place] 7.5-325] 1 - 2 tab PO Q6H PRN #32 tab PRN Reason: Pain Sennosides [Senokot] 2 tab PO DAILY PRN #60 tablet PRN Reason: Constipation No Action traMADol HCL 50 mg PO BID PRN PRN Reason: Pain metFORMIN HCL [Glucophage] 1,000 mg PO AC-SUPPER Rosuvastatin [Crestor] 10 mg PO HS Multivitamin [Multivitamins Adult Gummies] 1 each PO QAM L.acidoph,Paracasei, B.lactis [Probiotic] 1 each PO QAM Furosemide [Lasix] 20 mg PO QAM glipiZIDE [Glucotrol] 10 mg PO AC-BID Aspirin 325 mg PO HS amLODIPine BESYLATE 5 mg PO QAM Pantoprazole [Protonix] 40 mg PO QAM Metoprolol Tartrate [Lopressor] 50 mg PO BID Losartan Potassium [Cozaar] 100 mg PO QAM Cetirizine HCl [Zyrtec] 10 mg PO HS allopurinoL [Zyloprim] 100 mg PO QAM Insulin Glargine,Hum.rec.anlog [Basaglar Kwikpen U-100] 13 unit SQ QAM Insulin Aspart (Niacinamide) [Fiasp 100 Unit/ml Flextouch Pen] 4 - 5 units SQ AC-LUNCH Insulin Aspart (Niacinamide) [Fiasp 100 Unit/ml Flextouch Pen] 4 units SQ AC- BRKFST Calcium Carbonate/Vitamin D3 [Calcium 600 mg-Vit D3 5 mcg (200 unit)] 1 tab PO QAM Insulin Aspart (Niacinamide) [Fiasp 100 Unit/ml Flextouch Pen] 20 units SQ AC-SUPPER Discharge Medication List Cetirizine HCl [Zyrtec] 10 mg PO HS 10/19/23 [History] Furosemide [Lasix] 20 mg PO QAM 10/19/23 [History] Insulin Glargine,Hum.rec.anlog [Basaglar Kwikpen U-100] 13 unit SQ QAM 10/19/23 [History] L.acidoph,Paracasei, B.lactis [Probiotic] 1 each PO QAM 10/19/23 [History] Losartan Potassium [Cozaar] 100 mg PO QAM 10/19/23 [History] Metoprolol Tartrate [Lopressor] 50 mg PO BID 10/19/23 [History] Multivitamin [Multivitamins Adult Gummies] 1 each PO QAM 10/19/23 [History] Pantoprazole [Protonix] 40 mg PO QAM 10/19/23 [History] Rosuvastatin [Crestor] 10 mg PO HS 10/19/23 [History] allopurinoL [Zyloprim] 100 mg PO QAM 10/19/23 [History] amLODIPine BESYLATE 5 mg PO QAM 10/19/23 [History] glipiZIDE [Glucotrol] 10 mg PO AC-BID 10/19/23 [History] metFORMIN HCL [Glucophage] 1,000 mg PO AC-SUPPER 10/19/23 [History] traMADol HCL 50 mg PO BID PRN 10/19/23 [History] Aspirin 325 mg PO HS 02/02/24 [History] Calcium Carbonate/Vitamin D3 [Calcium 600 mg-Vit D3 5 mcg (200 unit)] 1 tab PO QAM 02/02/24 [History] Insulin Aspart (Niacinamide) [Fiasp 100 Unit/ml Flextouch Pen] 4 - 5 units SQ AC-LUNCH 02/02/24 [History] Insulin Aspart (Niacinamide) [Fiasp 100 Unit/ml Flextouch Pen] 4 units SQ AC- BRKFST 02/02/24 [History] Insulin Aspart (Niacinamide) [Fiasp 100 Unit/ml Flextouch Pen] 20 units SQ AC- SUPPER 02/02/24 [History] Aspirin 325 mg PO BID #60 tab 02/07/24 [Rx] HYDROcodone/APAP 7.5-325MG [[place] 7.5-325] 1 - 2 tab PO Q6H PRN #32 tab 02/07/24 [Rx] Sennosides [Senokot] 2 tab PO DAILY PRN #60 tablet 02/07/24 [Rx] Follow up Appointment(s)/Referral(s): [facility] - 1 Week (Agency will call 24-48 hours after discharge to schedule a visit.) Franki Hernandez DO [Doctor of Osteopathic Medicine] - 02/22/24 1:00 pm Activity/Diet/Wound Care/Special Instructions: Weightbearing as tolerated with a walker. CPM 5-6h daily as tolerated. Leave dressing intact. Dressing may be removed by home care nurse or by patient in 7 days. Then change dressing twice daily until follow up. May shower with initial dressing intact and after removal. If dressing become saturated, please remove. Recommend use of compression stockings daily until follow up to help prevent swelling and blood clots. May remove at night before sleeping. Please take aspirin 325mg twice daily for 30 days to prevent blood clots. Please follow up with [facility] and call with any questions or concerns, . Discharge Disposition: HOME WITH HOME HEALTH SERVICES
== END 2024-02-08 11:18 | disposition home health service (06) ==
LOC: OR 05:35 → 4SSUR 08:45 → OR 02-08 11:18
PROVIDERS: ATTEND Orthopaedic Surgery
DX: M17.11 Unilateral primary osteoarthritis, right knee (principal); G89.18 Other acute postprocedural pain; M21.161 Varus deformity, not elsewhere classified, right knee; Z96.652 Presence of left artificial knee joint; I11.9 Hypertensive heart disease without heart failure; E11.69 Type 2 diabetes mellitus with other specified complication; E78.49 Other hyperlipidemia; K21.9 Gastro-esophageal reflux disease without esophagitis; G47.30 Sleep apnea, unspecified; M85.80 Other specified disorders of bone density and structure, unspecified site; Z88.5 Allergy status to narcotic agent; Z88.8 Allergy status to other drugs, medicaments and biological substances; Z87.891 Personal history of nicotine dependence; Z95.5 Presence of coronary angioplasty implant and graft; Z79.84 Long term (current) use of oral hypoglycemic drugs; Z79.899 Other long term (current) drug therapy; Z79.4 Long term (current) use of insulin; Z79.82 Long term (current) use of aspirin
CPT/HCPCS: 97162; 64999; 64448; 85025; 73560; 27447; C1713; C1776; C1751; J2250; J1100; J0690 ×2; J2405; J3010; J2795